=== PATIENT | male | born 1945 | race Caucasian/White ===

== ENCOUNTER 2021-12-17 10:41 | Emergency (ER) | payer MEDICARE ==
[2021-12-17 11:50] LABS: HEMOGLOBIN 18.5 gm/dl (14.0-17.5); RED BLOOD COUNT 5.68 M/UL (4.20-5.50); WHITE BLOOD COUNT 13.5 K/UL (4.5-11.0)
== END 2021-12-17 14:15 | disposition home or self-care (01) ==
LOC: ER1 10:41
PROVIDERS: Nurse Practitioner
DX: U07.1 COVID-19 (principal); F17.210 Nicotine dependence, cigarettes, uncomplicated
CPT/HCPCS: 0240U; 70450; 71045; 80053; 81001; 82550; 82553; 83605; 83874; 83880; 84484; 85025; 85652; 86140; 87040; 93005; 99284; J7030